=== PATIENT | male | born 1995 | race Caucasian/White ===

== ENCOUNTER 2017-03-16 11:02 | Day surgery (SDC) | payer OTHER ==
--- NOTE | 2017-03-16 12:14 | Operative Note ---
Upper GI Endoscopy Procedure date: 03/16/17 Date of : [birth year] Procedure:Upper GI Endoscopy Esophagogastroduodenoscopy with cold biopsies and TTS balloon dilation Indications: Mr. Castro is a 21-year-old gentleman with nausea/vomiting, bloating, belching and some epigastric abdominal discomfort. He has had early satiety. The patient also reports some globus sensation with occasional dysphagia and frequent clearance of the throat. This can be exacerbated by stress/anxiety. The patient does have alternating IBS with diarrhea and then followed by intermittent constipation. He does have fluctuating weight. He reports no melena or hematochezia. He does have some lower cramps and functional diarrhea. This is his first EGD performed for evaluation of his dyspepsia. Performing Provider: Tigre aSmano MD Referring Provider: Aly Ordoñez M.D. Sedation: Fentanyl 200 mg IV/Versed 9 mg Procedure: Prior to the procedure, a history and physical exam was performed, and patients medications and allergies were reviewed. The risks and benefits of the procedure and the sedation options and risks were discussed with the patient. All questions were answered and informed consent was obtained. The patient was brought to the procedure room. Patient identification and proposed procedure were verified by the physician and the nurse. The patient was placed in a left lateral decubitus position and the scope was passed under direct vision. Throughout the procedure, the patient's blood pressure, pulse, and oxygen saturations were monitored continuously. The endoscope was introduced through the mouth, and advanced to the second part of duodenum. The upper GI endoscopy was accomplished without difficulty. The patient tolerated the procedure well. Findings: The scope was passed directly into the upper esophagus and advanced to the third portion of the duodenum. The post bulbar duodenum and duodenal bulb were normal with normal mucosa and conniventes. Cold biopsies were taken from the duodenum to rule out celiac disease. The scope was withdrawn through a normal duodenal bulb and pylorus into the stomach. There was moderate bile reflex was mild linear erythema in the antrum and body consistent with linear reactive gastritis. The remainder of the antrum, body and fundus of the stomach were grossly normal. Upon retroflexion there was a very small sliding 1-2 cm hiatal hernia. 2 biopsies were taken in the antrum and along the lesser curvature for histology. The scope was then withdrawn into the esophagus. There was evidence of nonerosive gastroesophageal reflux disease with serrated Z line. There was tertiary contractions and mild esophageal dysmotility. The entire esophagus was dilated to 60 [place]/20 mm with a TTS hydrostatic balloon. There was some resistance at the cricopharyngeus. The remainder of the esophageal mucosa was normal. Immediate complications: None EBL (ml): 0 Impression: 1. Cricopharyngeal spasm status post dilation to 20 mm 2. Nonerosive gastroesophageal reflux disease with mild esophageal dysmotility and very small 1-2 cm hiatal hernia 3. Bile reflux with linear reactive gastritis Recommendations: I do feel that the patient has functional dyspepsia and functional gastroesophageal reflux disease. We will discuss additional dietary measures and treatment options. I will follow-up the biopsies. at 1213
[2017-03-16 17:19] VITALS: BP 145/90
== END 2017-03-16 13:02 | disposition home or self-care (01) ==
LOC: SDC 11:02
PROVIDERS: Internal Medicine Gastroenterology
PROC: 0D758ZZ Dilation of Esophagus, Via Natural or Artificial Opening Endoscopic (ICD-10-PCS; 2017-03-16)
PROC: 0DB78ZX Excision of Stomach, Pylorus, Via Natural or Artificial Opening Endoscopic, Diagnostic (ICD-10-PCS; principal; 2017-03-16 14:00)
DX: K21.9 Gastro-esophageal reflux disease without esophagitis (principal); K44.9 Diaphragmatic hernia without obstruction or gangrene; K29.60 Other gastritis without bleeding; K22.4 Dyskinesia of esophagus
CPT/HCPCS: C1726